=== PATIENT | female | born 1995 | race Two or more races ===

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

== ENCOUNTER 2018-02-19 18:28 | Inpatient (IN) | payer SELFPAY ==
[~2018-02-19] VITALS: Ht 157.5 cm; Wt 69.4 kg
[~2018-02-19 18:28] MED LIST: IBUP-1060 PO
[2018-02-19] MEDS ORDERED: IV RINGERS,LACTATED 1000ML 1,000 ML IV SCH (18:59)
[2018-02-19] MEDS ORDERED: TERBUTALINE 1 MG/ML VIAL. SQ PRN (19:00)
[2018-02-19] MEDS ORDERED: 0.9 % SODIUM CHLORIDE 10 ML DISP.SYRIN. IV PRN ×2 (19:00→21:15)
[2018-02-19] MEDS ORDERED: OXYTOCIN 30 UNIT/500 ML PREMIX 500 ML IV PRN ×3 (19:00→21:15)
[2018-02-19] MEDS ORDERED: ONDANSETRON PF 4 MG/2 ML VIAL. IV PRN (19:00)
[2018-02-19] MEDS ORDERED: BUTORPHANOL 2 MG/ML VIAL. IV PRN ×2 (19:00)
[2018-02-19] MEDS ORDERED: DINOPROSTONE 10 MG SUPP.VAG VG ONE (19:00)
[2018-02-19] MEDS ORDERED: CITRIC ACID/SODIUM CITRATE 30 ML SOLUTION. PO PRN (19:00)
[2018-02-19] MEDS ORDERED: LIDOCAINE 1% PF 30 ML VIAL. INJ PRN (19:00)
[2018-02-19 19:15] LABS: BILIRUBIN,URINE NEGATIVE (NEG); CLARITY,URINE CLEAR; COLOR,URINE YELLOW; NITRITE,URINE NEGATIVE (NEG); PROTEIN,URINE NEGATIVE (NEG-TRACE); UROBILINOGEN,URINE 0.2 mg/dL (0.2 mg/dL)
[2018-02-19 19:36] LABS: BASO # 0.1 x10^3/uL (0.0-0.2); BASO % 1 % (0-3); EOS # 0.1 x10^3/uL (0.0-0.7); EOS % 1 % (0-3); HEMATOCRIT 36.7 % (36.0-47.0); HEMOGLOBIN 12.6 g/dL (12.0-15.5); LYMPH # 1.7 x10^3/uL (1.0-4.8); LYMPH % 10 % (24-48); MEAN CORPUSCULAR HEMOGLOBIN 30 pg (25-35); MEAN CORPUSCULAR HGB CONC 34 g/dL (31-37); MEAN CORPUSCULAR VOLUME 87 fL (79-100); MONO # 0.8 x10^3/uL (0.0-1.1); MONO % 5 % (0-9); NEUT % 83 % (31-73); PLATELET COUNT 289 x10^3/uL (140-400); RED BLOOD COUNT 4.23 x10^6/uL (3.50-5.40); RED CELL DISTRIBUTION WIDTH 13.5 % (11.5-14.5); WHITE BLOOD COUNT 16.8 x10^3/uL (4.0-11.0)
[2018-02-19 20:19] LABS: % BANDS 3 % (0-9); % LYMPHS 14 % (24-48); % MONOS 7 % (0-10); % SEGS 76 % (35-66)
[2018-02-19 20:20] LABS: PLT ESTIMATE ADEQUATE (ADEQUATE)
[2018-02-19] MEDS ORDERED: MAG HYDROX/ALUMINUM HYD/SIMETH 30 ML ORAL.SUSP PO PRN (21:15)
[2018-02-19] MEDS ORDERED: diphenhydrAMINE HCL 25 MG CAPSULE PO PRN (21:15)
[2018-02-19] MEDS ORDERED: PHENYLEPH/MINERAL OIL/PETROLAT RECTAL OINTMENT 28GM TUBE. RC PRN (21:15)
[2018-02-19] MEDS ORDERED: SIMETHICONE 80 MG TAB.CHEW PO PRN (21:15)
[2018-02-19] MEDS ORDERED: HYDROCORTISONE 1% TOPICAL OINTMENT 30GM TUBE. TP PRN (21:15)
[2018-02-19] MEDS ORDERED: ZOLPIDEM 5 MG TABLET. PO PRN (21:15)
[2018-02-19] MEDS ORDERED: BENZOCAINE 20% TOPICAL AEROSOL SPRAY 57GM CAN. TP PRN (21:15)
[2018-02-19] MEDS ORDERED: IBUPROFEN 800 MG TABLET. PO PRN (21:15)
[2018-02-19] MEDS ORDERED: ACETAMINOPHEN 325 MG TABLET. PO PRN (21:15)
[2018-02-19] MEDS ORDERED: MAGNESIUM HYDROXIDE 2,400 MG/30 ML ORAL.SUSP. PO PRN (21:15)
--- NOTE | 2018-02-19 21:19 | PDOC ---
VAGINAL DELIVERY DATE DATE: 02/19/18 TIME: 21:17 : 2 Para: 1 EDC: Feb 20, 2018 VAGINAL DELIVERY: VTX VACCUM ASSISTED: No PLACENTA: Spontaneous SEX: Female WEIGHT 6/5 Nuchal Cord: No Amniotic Fluid: Clear PAIN: Local EPISIOTOMY: No EXTENSION: No EBL 300cc COMPLICATIONS None CONDITION Stable Signs of Intrauterine Infectio: None Shoulder Dystocia: No DIAGNOSIS CSVD ANTELMO THAO MD Feb 19, 2018 21:19
[2018-02-19] MEDS ORDERED: OXYTOCIN PREMIX 30 UNIT/500 ML BAG. IV ONE (22:00)
[2018-02-19 23:50] VITALS: BP 114/69
[2018-02-20 01:00] VITALS: BP 107/59
[2018-02-20] MEDS: IBUPROFEN 800 MG TABLET. PO PRN ×3 (01:55→18:01)
[2018-02-20 06:19] VITALS: BP 103/57
[2018-02-20] MEDS: FERROUS SULFATE 325 MG TABLET. PO SCH ×2 (08:00→17:00)
--- NOTE | 2018-02-20 09:58 | PDOC ---
Provider Note Provider Note Doing well VSS Uterus NTTP FU in AM ANTELMO THAO MD Feb 20, 2018 09:58
[2018-02-20 11:10] VITALS: BP 105/60
[2018-02-20 14:50] VITALS: BP 109/58
[2018-02-20 20:23] VITALS: BP 112/68
[2018-02-21] MEDS: IBUPROFEN 800 MG TABLET. PO PRN ×2 (03:44→10:13)
[2018-02-21 04:00] VITALS: BP 105/64
[2018-02-21] MEDS ORDERED: INFLUENZA VAX SCREEN BY RX. MC PRN (07:15)
[2018-02-21 12:40] VITALS: BP 106/66
== END 2018-02-21 15:31 | disposition home or self-care (01) | DRG 775 ==
LOC: 3 SO LND 18:28 → OBSVTOIN 19:02 → 3 SO LND 02-20 00:39
PROVIDERS: ADMIT Specialist; ATTEND Specialist
PROC: 10E0XZZ Delivery of Products of Conception, External Approach (ICD-10-PCS; principal; 2018-02-19)
PROC: 3E0234Z Introduction of Serum, Toxoid and Vaccine into Muscle, Percutaneous Approach (ICD-10-PCS; 2018-02-21)
DX: O80 Encounter for full-term uncomplicated delivery (principal); Z37.0 Single live birth; Z3A.00 Weeks of gestation of pregnancy not specified; Z23 Encounter for immunization
CPT/HCPCS: 36415; 81003; 82962; 85007; 85014; 85025; 86592; 86850; 86900; 86901; 90471; 90756; G0378; G0379; J2590; J7120; Q2035